=== PATIENT | male | born 1945 | race Caucasian/White ===

== ENCOUNTER → 2018-02-10 | Day surgery (SDC) | payer OTHER, MEDICARE ==
[~2018-02-10] VITALS: Ht 177.8 cm; Wt 95.3 kg
--- NOTE | 2018-02-10 09:41 | Operative Report ---
Operative/Inv Procedure Report Surgery Date: 02/10/18 Name of Procedure: Cataract extraction and intraocular lens implantation right eye Pre-Operative Diagnosis: Age-related cataract right eye Post-Operative Diagnosis: Same Estimated Blood Loss: none Surgeon/Division Manager: Dev CARDOZA,Virgilio Varghese Anesthesia: local monitored anesthesi Complications: None Operative/Procedure Note Note: Preoperatively the patient was noted to have 20/30 vision in the right eye with a decrease with glare testing down to 20/100. The risks, benefits, and alternatives to surgery were discussed at length with the patient. Informed consent was obtained. The patient was brought to the operating room where the right eye was prepped and draped in the normal sterile fashion. A speculum was placed on the right eye with good exposure. A stab incision was made using a paracentesis blade. Intracameral lidocaine was placed. Viscoelastic was used to form the anterior chamber. A clear corneal incision was made using keratome blade. A continuous curvilinear capsulorrhexis was made using a cystotome needle followed by Utrata forceps. There was no extension of the rhexis. Hydrodissection was performed using balanced salt solution. The cataract was removed using a stop and chop technique. Residual cortex was removed using coaxial irrigation and aspiration. The capsule was polished using irrigation and aspiration and the posterior capsule was cleaned using a balanced salt solution jet. There was no residual lens material inside the eye. The capsular bag was reformed using viscoelastic. An intraocular lens [id number] of power 19.5 was verified and confirmed. It was loaded into an injector and injected into the eye. The lens was placed entirely within the capsular bag. Viscoelastic was evacuated using irrigation and aspiration. The wounds were stromally hydrated and the eye filled to physiologic pressure using balanced salt solution. Intracameral cefuroxime was placed. Speculum was removed and a shield was placed on the eye. The patient was brought to the recovery area without incident. Instructions were given to follow-up the next day for routine postoperative care.
== END ==
LOC: STS 01:15
DX: H25.9 Unspecified age-related cataract (principal); I48.91 Unspecified atrial fibrillation; Z79.01 Long term (current) use of anticoagulants; I10 Essential (primary) hypertension; E11.8 Type 2 diabetes mellitus with unspecified complications; Z79.84 Long term (current) use of oral hypoglycemic drugs
CPT/HCPCS: V2632